=== PATIENT | female | born 1940 | race Caucasian/White ===

== ENCOUNTER 2018-02-17 17:09 | Emergency (ER) | payer OTHER, MEDICARE ==
[2018-02-17] MEDS ORDERED: GLUCAGON 1 MG/VIAL ONE ×2 (17:42→18:03)
--- NOTE | 2018-02-17 18:20 | ER ---
Nurse's Notes [facility] Name: Faith Varghese Age: 77 yrs Sex: Female : 1940 Arrival Date: 02/17/2018 Time: 17:11 Bed 27 Private MD: Dm Howard V Diagnosis: Esophageal Foreign body - steak , resolved Presentation: 02/17 17:38 Presenting complaint: Patient states: Steak stuck in throat since 1330. I tried ch drinking a coke and it didn't come out. Transition of care: patient was not received from another setting of care. Onset of symptoms was February 17, 2018 at 13:30. Risk Assessment: Do you want to hurt yourself or someone else? Patient reports no desire to harm self or others. Initial Sepsis Screen: Does the patient meet any 2 criteria? No. Patient's initial sepsis screen is negative. Does the patient have a suspected source of infection? No. Patient's initial sepsis screen is negative. Care prior to arrival: None. 17:38 Method Of Arrival: Ambulatory 17:38 Acuity: VA 2 Triage Assessment: 17:41 General: Appears in no apparent distress. comfortable, Behavior is calm, cooperative, ch appropriate for age. Pain: Denies pain. Neuro: No deficits noted. Respiratory: No deficits noted. Airway is patent Respiratory effort is even, unlabored, Breath sounds are clear bilaterally. GI: Reports intolerance of fluids, intolerance of food, states she feels something stuck in her throat. : No signs and/or symptoms were reported regarding the genitourinary system. Derm: Skin is intact, Skin is pink, warm \T\ dry. Historical: - Allergies: 17:41 Demerol; ch - Home Meds: 17:41 Lipitor Oral [Active]; aspirin 325 mg oral TbEC [Active]; Trazodone Oral [Active]; ch Fluoxetine Oral [Active]; - PMHx: 17:41 Depression; Hyperlipidemia; ch - PSHx: 17:41 Cholecystectomy; volvulous; ch - Immunization history:: Adult Immunizations up to date. - Social history:: Smoking status: Patient/guardian denies using tobacco. - Ebola Screening: : Patient negative for fever greater than or equal to 101.5 degrees Fahrenheit, and additional compatible Ebola Virus Disease symptoms Patient denies exposure to infectious person Patient denies travel to an Ebola-affected area in the 21 days before illness onset No symptoms or risks identified at this time. - Family history:: not pertinent. - Hospitalizations: : No recent hospitalization is reported. Screenin:43 Abuse screen: Denies threats or abuse. Denies injuries from another. Nutritional ch screening: No deficits noted. Tuberculosis screening: No symptoms or risk factors identified. Fall Risk None identified. 18:26 The patient is alert, able to follow commands. The patient does not exhibit slurred or ch garbled speech The patient is not exhibiting difficulty speaking. The patient does not exhibit difficulty understanding words. The patient is able to swallow own secretions with no drooling or need for suction. Patient tolerated one teaspoon of water. No drooling, immediate coughing, gurgling, or clearing of the throat was noted. The patient tolerated 90mL of water. No drooling, immediate coughing, gurgling, or clearing of the throat was noted. The patient passed the bedside swallow screening. Oral medications may be given as ordered. Contact Physician for further diet orders. Assessment: 17:43 Reassessment: Patient appears in no apparent distress at this time. No changes from previously documented assessment. Patient and/or family updated on plan of care and expected duration. Pain level reassessed. Patient is alert, oriented x 3, equal unlabored respirations, skin warm/dry/pink. 17:58 Reassessment: Patient appears in no apparent distress at this time. Patient and/or ch family updated on plan of care and expected duration. Pain level reassessed. pt coughing and gagging in room, no vomit yet. pt cannot swallow water. pt re medicated. 18:11 Reassessment: Patient appears in no apparent distress at this time. Patient and/or ch family updated on plan of care and expected duration. Pain level reassessed. Patient is alert, oriented x 3, equal unlabored respirations, skin warm/dry/pink. PT VOMITED, FEELS IMMEDIATE RELIEF. PT CAN DRINK WATER NOW. 18:26 Reassessment: Patient appears in no apparent distress at this time. Patient and/or ch family updated on plan of care and expected duration. Pain level reassessed. Patient is alert, oriented x 3, equal unlabored respirations, skin warm/dry/pink. Patient denies pain at this time. Patient states feeling better. Patient states symptoms have improved. Vital Signs: 17:41 BP 182 / 84; Pulse 92; Resp 18; Temp 97.8; Pulse Ox 99% on R/A; Weight 54.43 kg; Height ch 5 ft. (152.40 cm); Pain 0/10; 18:11 BP 168 / 84; Pulse 76; Resp 14; Pulse Ox 99% on R/A; Pain 0/10; ch 18:26 BP 154 / 62; Pulse 78; Resp 14; Temp 97.9; Pulse Ox 99% on R/A; Pain 0/10; ch 17:41 Body Mass Index 23.44 (54.43 kg, 152.40 cm) ED Course: 17:11 Patient arrived in ED. as 17:11 Dm Howard MD is Private Physician. as 17:16 Kelsey Andrade, RAUL is Primary Nurse. ch 17:18 Gurdeep Cook MD is Attending Physician. rn 17:39 Triage completed. ch 17:41 Arm band placed on left wrist. Patient placed in an exam room, on a stretcher, on pulse ch oximetry. 17:43 No apparent distress. Resting quietly. ch 17:43 Patient has correct armband on for positive identification. Placed in gown. Bed in low ch position. Call light in reach. Side rails up X 1. Adult w/ patient. Pulse ox on. NIBP on. 17:43 No provider procedures requiring assistance completed. Inserted saline lock: 22 gauge ch in left wrist, using aseptic technique. Blood collected. 18:26 No apparent distress. Resting quietly. ch 18:26 IV discontinued, intact, bleeding controlled, No redness/swelling at site. Pressure ch dressing applied. Administered Medications: 17:45 Drug: Glucagon 1 mg Route: IVP; Site: left wrist; ch 17:59 Follow up: Response: No adverse reaction; No change in condition ch 17:59 Drug: Glucagon 1 mg Route: IVP; Site: left wrist; ch 18:35 Follow up: Response: No adverse reaction; Marked relief of symptoms ch Outcome: 18:20 Discharge ordered by . rn 18:26 Discharged to home ambulatory, with family. ch 18:26 Condition: improved 18:26 Discharge instructions given to patient, Instructed on discharge instructions, follow up and referral plans. medication usage, Demonstrated understanding of instructions, follow-up care. 18:36 Patient left the ED. Signatures: Kelsey Andrade, RAUL RN Nory Vargas Roman, MD MD rn
--- NOTE | 2018-02-17 18:21 | EDPHYS ---
Physician Documentation [facility] Name: Faith Varghese Age: 77 yrs Sex: Female : 1940 Arrival Date: 02/17/2018 Time: 17:11 Bed 27 Private MD: Dm Howard V ED Physician Gurdeep Cook HPI: 02/17 18:11 This 77 yrs old Female presents to ER via Ambulatory with complaints of rn Foreign Body In Throat - Food. 18:11 The patient presents with a foreign body sensation in the throat. Onset: The rn symptoms/episode began/occurred today. Severity of symptoms: At their worst the symptoms were moderate, in the emergency department the symptoms are unchanged. The patient has not experienced similar symptoms in the past. Reports eating steak for lunch, around 1330 felt piece of steak stuck in throat, unable to tolerate fluids. . Historical: - Allergies: 17:41 Demerol; ch - Home Meds: 17:41 Lipitor Oral [Active]; aspirin 325 mg oral TbEC [Active]; Trazodone Oral [Active]; ch Fluoxetine Oral [Active]; - PMHx: 17:41 Depression; Hyperlipidemia; ch - PSHx: 17:41 Cholecystectomy; volvulous; ch - Immunization history:: Adult Immunizations up to date. - Social history:: Smoking status: Patient/guardian denies using tobacco. - Ebola Screening: : Patient negative for fever greater than or equal to 101.5 degrees Fahrenheit, and additional compatible Ebola Virus Disease symptoms Patient denies exposure to infectious person Patient denies travel to an Ebola-affected area in the 21 days before illness onset No symptoms or risks identified at this time. - Family history:: not pertinent. - Hospitalizations: : No recent hospitalization is reported. ROS: 18:15 Constitutional: Negative for fever, chills, and weight loss, ENT: + foreign body rn sensation in throat Neck: Negative for injury, pain, and swelling, Cardiovascular: Negative for chest pain, palpitations, and edema, Respiratory: Negative for shortness of breath, cough, wheezing, and pleuritic chest pain, Abdomen/GI: Negative for abdominal pain, nausea, vomiting, diarrhea, and constipation, Skin: Negative for injury, rash, and discoloration, Neuro: Negative for headache, weakness, numbness, tingling, and seizure. Exam: 18:15 Constitutional: This is a well developed, well nourished patient who is awake, alert, rn and in no acute distress. ENT: MMM, no stridor Vital Signs: 17:41 BP 182 / 84; Pulse 92; Resp 18; Temp 97.8; Pulse Ox 99% on R/A; Weight 54.43 kg; Height ch 5 ft. (152.40 cm); Pain 0/10; 18:11 BP 168 / 84; Pulse 76; Resp 14; Pulse Ox 99% on R/A; Pain 0/10; ch 18:26 BP 154 / 62; Pulse 78; Resp 14; Temp 97.9; Pulse Ox 99% on R/A; Pain 0/10; ch 17:41 Body Mass Index 23.44 (54.43 kg, 152.40 cm) ch MDM: 17:18 Patient medically screened. rn 18:15 Differential diagnosis: esophageal foreign body. Data reviewed: vital signs, nurses rn notes, and as a result, I will discharge patient. Counseling: I had a detailed discussion with the patient and/or guardian regarding: the historical points, exam findings, and any diagnostic results supporting the discharge/admit diagnosis, the need for outpatient follow up, to return to the emergency department if symptoms worsen or persist or if there are any questions or concerns that arise at home. Special discussion: I discussed with the patient/guardian in detail that at this point there is no indication for admission to the hospital. It is understood, however, that if the symptoms persist or worsen the patient needs to return immediately for re-evaluation. ED course: Pt given glucagon, + emesis with steak in emesis, now tolerating PO liquids and foreign body sensation resolved. . 02/17 17:24 Order name: IV Start; Complete Time: 18:00 rn Administered Medications: 17:45 Drug: Glucagon 1 mg Route: IVP; Site: left wrist; ch 17:59 Follow up: Response: No adverse reaction; No change in condition ch 17:59 Drug: Glucagon 1 mg Route: IVP; Site: left wrist; ch 18:35 Follow up: Response: No adverse reaction; Marked relief of symptoms ch Disposition: 02/17/18 18:20 Discharged to Home. Impression: Esophageal Foreign body - steak , resolved. - Condition is Stable. - Medication Reconciliation Form, Thank You Letter, Antibiotic Education, Prescription Opioid Use form. - Follow up: Private Physician; When: As needed; Reason: Recheck today's complaints, Re-evaluation by your physician. - Problem is new. - Symptoms are resolved. Signatures: Kelsey Andrade RN RN Gurdeep Cook MD MD lpn rn: (The following items were deleted from the chart) 18:36 18:20 02/17/2018 18:20 Discharged to Home. Impression: Esophageal Foreign body - steak ch , resolved. Condition is Stable. Forms are Medication Reconciliation Form, Thank You Letter, Antibiotic Education, Prescription Opioid Use. Follow up: Private Physician; When: As needed; Reason: Recheck today's complaints, Re-evaluation by your physician. Problem is new. Symptoms are resolved. rn
[2018-02-18 01:36] VITALS: O2SAT 99
[2018-02-18 01:40] VITALS: BP 154/62; TEMP 97.9
== END 2018-02-17 18:36 | disposition home or self-care (01) ==
LOC: ER 17:09
DX: T18.128A Food in esophagus causing other injury, initial encounter (principal); E78.5 Hyperlipidemia, unspecified; F32.9 Major depressive disorder, single episode, unspecified; Z79.899 Other long term (current) drug therapy
CPT/HCPCS: 96374; 99284; J1610 ×2